=== PATIENT | female | born 1980 | race African-American/Black ===

== ENCOUNTER 2019-03-10 08:23 | Emergency (ER) | payer SELFPAY ==
[2019-03-10 08:35] VITALS: BP 132/95
[2019-03-10] MEDS ORDERED: Fluorescein Sodium TOPICAL* 1 MG TEST STRIP OPHTHALMIC ONE (08:41)
[2019-03-10] MEDS ORDERED: Tetracaine 0.5% OPTH.SOL 4 ML* 1 DROP BTL ONE (08:41)
[2019-03-10] MEDS ORDERED: Acetaminophen TAB* 325 MG PO ONE (09:22)
--- NOTE | 2019-03-10 09:38 | UC ---
Eye Complaint HPI - HPI Summary HPI Summary: Patient presents to urgent care for evaluation injury to her left eye. 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 States he's reached out and scratched her left eye. Patient with pain in the left eye since. States it happened this morning. Patient states she's been tearing. Mild photophobia. Patient denies headache or vision changes although then the tearing makes things blurry. Patient did not take any analgesia. Patient does not wear corrective lenses a little previously wore glasses. Patient without any blood HEENT. Tetanus is up -to-date. Medications medications as entered in the EMR which we attributed this visit. - History of Current Complaint Chief Complaint: UCEye Stated Complaint: EYE COMPLAINT Time Seen by Provider: 03/10/19 08:39 Hx Obtained From: Patient Hx Last Menstrual Period: 1 year Pain Intensity: 6 Pain Scale Used: 0-10 Numeric - Allergies/Home Medications Allergies/Adverse Reactions: Allergies Allergy/AdvReac Type Severity Reaction Status Date / Time morphine Allergy Dizziness Verified 03/10/19 08:28 PMH/Surg Hx/FS Hx/Imm Hx Previously Healthy: Yes - Surgical History Surgical History: Yes Surgery Procedure, Year, and Place: gall bladder removal - 2016 - Family History Known Family History: Positive: None, Hypertension, Non-Contributory Negative: Cardiac Disease, Diabetes - Social History Occupation: Employed Full-time Lives: With Family Alcohol Use: None Substance Use Type: None Smoking Status (MU): Never Smoked Tobacco - Immunization History Most Recent Influenza Vaccination: Most Recent Tetanus Shot: few years ago Most Recent Pneumonia Vaccination: never Review of Systems All Other Systems Reviewed And Are Negative: Yes Constitutional: Positive: Negative Skin: Positive: Negative Eyes: Positive: Drainage - clear tearing, Eye Redness, Photophobia, Other - eye pain ENT: Positive: Negative Respiratory: Positive: Negative Cardiovascular: Positive: Negative Gastrointestinal: Positive: Negative Physical Exam - Summary Physical Exam Summary: Vital Signs Reviewed: Yes A+Ox3, no distress,holding left eye close Eyes: mild injected left eye, ESTEBAN, EOM intact and full, reviewed visual acuity pt with small (2mm) scratch to upper lid at lashes mild photophobia Kendall fundoscopic exam After permission, applied 2 drops of tetrcaine - after initial burn, pt states pain improved under fluorescne pt with update at 5 oclock - no foreign body appreciated lids everted without injury, foreign body ENT: Hearing grossly normal neck: supple Respiratory: Positive: No respiratory distress, No accessory muscle use Cardiovascular: skin color reflect adequate perfusion Musculoskeletal Exam: LYMAN x 4 without difficulty Neurological: Positive: Alert, ambulatory without difficulty Psychological: Positive: Normal Response To examiner Skin: Positive: no rash, no ecchymosis Triage Information Reviewed: Yes Vital Signs: Initial Vital Signs Temp 98.1 F 03/10/19 08:31 Pulse 73 03/10/19 08:31 Resp 16 03/10/19 08:31 BP 132/95 03/10/19 08:31 Pulse Ox 100 03/10/19 08:31 Eye Complaint Course/Dx - Course Course Of Treatment: Patient presents to urgent care for evaluation of left eye injury that happened at work. Patient states a gentleman with dementia reached out and scratched the eye. Patient reports mild photophobia and tearing since this time. Happened this morning. Patient's tetanus is up-to-date. Patient does not wear corrective lenses. On exam vital signs are stable. Patient with mild injection to the left eye with her tears. Patient with a small nonsuturable scratched the left upper lid. On for seen examination patient does have uptake at around 5:00. We'll start patient on antibiotics as well as ketorolac. Recommendation follow up with ophthalmology. Also recommend she follow up with Dr. Kenny as this was a work related injury. Patient and are agreeable with plan. Recommend Motrin and Tylenol as well. Tetracaine was discarded in the room by me. Patient given a work note for tomorrow. Return precautions discussed. - Differential Dx/Diagnosis Provider Diagnosis: Left corneal abrasion Discharge ED - Sign-Out/Discharge Documenting (check all that apply): Patient Departure All imaging exams completed and their final reports reviewed: No Studies - Discharge Plan Condition: Stable Disposition: HOME Prescriptions: Ketorolac 0.5% OPHTH (NF) 1 drop LEFT EYE Q6HR PRN #1 [id number] PRN Reason: left eye pain Polymyx/Trimethoprim OPTH* [Polytrim OPHTH*] 2 drop LEFT EYE Q6HR #1 btl Patient Education Materials: Corneal Abrasion (ED) Forms: *Work Release Referrals: Angel Kenny MD [Medical Doctor] - [place] Bob MD [Medical Doctor] - Additional Instructions: - apply eye drops to affected every 3 times a day for 5 days -okay to alternate ibuprofen (Advil, Motrin) 600mg and tylenol every 3 hours for pain. Take with food - It is recommended you use sunglasses to help with light sensitivity. You can also purchase an over the counter eye patch -contact the community health specialist to schedule a follow-up in the next 1-2 days - you should also contact Dr. Kenny, occupational medicine provider, to schedule a follow-up appointment since this was a work related injury - Billing Disposition and Condition Condition: STABLE Disposition: Home
== END 2019-03-10 09:34 | disposition home or self-care (01) ==
LOC: UCEAST 08:23
DX: S05.02XA Injury of conjunctiva and corneal abrasion without foreign body, left eye, initial encounter (principal); H53.142 Visual discomfort, left eye; Z88.5 Allergy status to narcotic agent; W50.4XXA Accidental scratch by another person, initial encounter; Y92.9 Unspecified place or not applicable; Y99.0 Civilian activity done for income or pay
CPT/HCPCS: 99212; A9270-GY; G0463